=== PATIENT | female | born 1990 | race Caucasian/White ===

== ENCOUNTER 2016-07-14 14:28 | Emergency (ER) | payer BC ==
[2016-07-14 14:49] VITALS: BP 128/80
--- NOTE | 2016-07-14 16:27 | UC ---
Lower Extremity/Ankle HPI - HPI Summary HPI Summary: About 2 weeks ago developed pain/numbness/tingling in L calf, mainly on medial area. No trauma, , BCP, or clotting d/o. Reports that the week before sx started she was "very sedentary" because of back pain and using cyclobenzaprine, no joint immobilization. Around 4 days ago did some deep stretching in L calf which led to migrating areas of numbness, cramping pain, and tingling on lateral calf, back of calf, L foot, and anterior L thigh. About 2 days ago noticed some very light tingling in L medial arm. Denies any weakness or trouble with bowel or bladder. Has chronic back pain from scoliosis , mainly in lower T-spine and top of L-spine. No back surgeries. - History of Current Complaint Chief Complaint: UCLowerExtremity Stated Complaint: CRAMP IN LEFT LEG Time Seen by Provider: 07/14/16 15:37 Hx Obtained From: Patient Hx Last Menstrual Period: 06/23/16 ?: No Onset/Duration: Gradual Onset, Lasting Weeks Severity Initially: Mild Severity Currently: Moderate Aggravating Factor(s): Other - sitting/lying Alleviating Factor(s): Nothing Able to Bear Weight: Yes - Allergies/Home Medications Allergies/Adverse Reactions: Allergies Allergy/AdvReac Type Severity Reaction Status Date / Time Penicillins [PCN] Allergy Hives Verified 07/14/16 14:42 Home Medications: Home Medications Aspirin [Aspirin 81 MG TAB] 648 mg PO DAILY PRN 07/14/16 [History Confirmed 12/22] Cyclobenzaprine (NF) [Cyclobenzaprine 5 MG (NF)] 5 mg PO TID PRN 07/14/16 [ History Confirmed 07/14/16] Gabapentin CAP(*) [Neurontin 100 mg CAP(*)] 200 mg PO DAILY 07/14/16 [History Confirmed 07/14/16] PMH/Surg Hx/FS Hx/Imm Hx Previously Healthy: Yes - Surgical History Surgical History: None - Family History Known Family History: Negative: Blood Disorder - no clotting d/o in [facility] - Social History Lives: Alone Alcohol Use: Rare Substance Use Type: None Smoking Status (MU): Never Smoked Tobacco - Immunization History Most Recent Influenza Vaccination: none Review of Systems Constitutional: Negative Skin: Negative Eyes: Negative ENT: Negative Respiratory: Negative Cardiovascular: Negative Gastrointestinal: Negative Genitourinary: Negative Motor: Negative Neurovascular: Negative Musculoskeletal: Negative Neurological: Paresthesia, Numbness Psychological: Negative All Other Systems Reviewed And Are Negative: Yes Physical Exam Triage Information Reviewed: Yes Appearance: Well-Appearing, No Pain Distress, Well-Nourished Vital Signs: Initial Vital Signs Temp 99.4 F 07/14/16 14:45 Pulse 89 07/14/16 14:45 Resp 16 07/14/16 14:45 BP 128/80 07/14/16 14:45 Pulse Ox 100 07/14/16 14:45 Vital Signs Reviewed: Yes Eye Exam: Normal, Other - PERRL Eyes: Positive: Conjunctiva Clear ENT Exam: Normal ENT: Positive: Normal ENT inspection, Hearing grossly normal, Pharynx normal, TMs normal Dental Exam: Normal Neck exam: Normal Neck: Positive: Supple, Nontender, No Lymphadenopathy Respiratory Exam: Normal Respiratory: Positive: Chest non-tender, Lungs clear, Normal breath sounds, No respiratory distress, No accessory muscle use Cardiovascular Exam: Normal Cardiovascular: Positive: RRR, No Murmur Musculoskeletal Exam: Other - suzi's sign negative Musculoskeletal: Positive: Strength Intact, ROM Intact, No Edema Neurological Exam: Other - reports current numbness and tingling in L lateral calf and L lateral foot Neurological: Positive: Alert, Muscle Tone Normal Psychological Exam: Normal Skin Exam: Normal, Other - no redness or swelling in LLE Lower Extremity Course/Dx - Differential Dx/Diagnosis Provider Diagnoses: Paresthesia in LLE and LUE Discharge - Discharge Plan Condition: Stable Disposition: HOME Patient Education Materials: Paresthesia (ED) Referrals: [facility] [place] [facility] [Outside] Natasha Crowder MD [Medical Doctor] - Additional Instructions: As we discussed, I do not think your numbness and tingling are from a nerve in your back (or neck). You do not have risk factors for, or clinical signs of, deep vein thrombosis. You will need more testing if your symptoms do not improve on their own. I have also listed a neurology specialist's name here. While you are pursuing primary care, you can also make an appointment with the neurologist so you have a back-up plan. If you have muscle weakness, sudden worsening, or any severe pain, please go to the emergency department.
== END 2016-07-14 16:30 | disposition home or self-care (01) ==
LOC: UCEAST 14:28
DX: R20.0 Anesthesia of skin (principal); M54.5 Low back pain; M54.6 Pain in thoracic spine; M41.9 Scoliosis, unspecified; Z79.82 Long term (current) use of aspirin
CPT/HCPCS: 99201; G0463